=== PATIENT | male | born 1950 | race Caucasian/White ===

== ENCOUNTER 2016-07-13 14:10 | Day surgery (SDC) | payer MEDICARE ==
--- NOTE | ~2016-07-13 | OP ---
Record Of Operation [facility] [address] [place]. [address] NAME: RUBEN MAYORGA : 48 STATUS : [facility]#: [id number] AGE: 66 ADM/REG DATE : 07/13/16 MR#: [id number] REPORT SERV DATE: 07/14/16 DICTATED BY: JUDITH BOOTHE DATE: 07/14/16 REPORT STATUS : Draft TRANSCRIBED BY: MODL DATE: 07/14/16 DATE OF PROCEDURE: 07/13/2016 GEM CARVER: Ubaldo. PREPROCEDURE DIAGNOSIS: Angiomyolipoma metastatic cancer. POSTPROCEDURE DIAGNOSIS: Angiomyolipoma metastatic cancer. PROCEDURE PERFORMED: Placement of Port-A-Cath in the right IJ position using fluoroscopic and ultrasound guidance. ANESTHETIC: MAC and local. SPECIMENS: None. ESTIMATED BLOOD LOSS: Minimal. COMPLICATIONS: None. 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 He is needing to get chemotherapy and was offered a port for this. Risks, benefits, and alternatives were discussed. He understood and wished to proceed. OPERATIVE COURSE: The patient was brought to the operating room and placed in supine position on the operating room table. The patient had MAC anesthetic without complications. The right neck and chest were prepped and draped in sterile fashion. A time-out was performed to identify the correct patient, procedure, and site. We began by using the ultrasound to identify the right IJ vein. It was compressible and free of thrombus. We anesthetized the skin and subcutaneous tissue, and then accessed the vein under ultrasound guidance. A copy of this picture was placed on the chart for review. Once we had access, a wire was passed down through the cardiac chambers into the IVC. The needle was removed and we widened the entry site using #11 blade scalpel. We selected a site for the port and anesthetized the skin and subcutaneous tissue here as well as from that location to the neck site. We made a transverse incision 1 to 2 fingerbreadths below the clavicle and deepened it using the cautery. We made an adequate pocket and tested it by placing the port inside it and it fit adequately. We then tunneled the catheter portion of the port from the pocket into subcutaneous tissue over the clavicle and into the neck exit site. Over the wire, we then passed a series of dilators to dilate the skin and vein tract. We then placed the angulo breakaway sheath over the wire into position under fluoroscopy. The dilator and wire were then removed. We then advanced the catheter into position through the sheath. The sheath was split and removed while keeping the catheter in place. The catheter was flushed and it worked appropriately. We then trimmed the catheter. We got the port and sutured it medially and laterally with Prolene suture to the deep pocket space. We attached the port to the catheter using the appropriate locking mechanism. Prior to dunking the port under Record Of Operation [facility] [address] [facility] [place]. [address] NAME: RUBEN MAYORGA : 48 STATUS : [facility]#: [id number] AGE: 66 ADM/REG DATE : 07/13/16 MR#: [id number] REPORT SERV DATE: 07/14/16 DICTATED BY: JUDITH BOOTHE DATE: 07/14/16 REPORT STATUS : Draft TRANSCRIBED BY: TRANG DATE: 07/14/16 the skin, we tested using the straight Carroll needle and it worked appropriately. We put the port under the skin, secured with Prolenes, and tested it once again with the straight Carroll needle through the skin and it worked fine. The wound was irrigated. We closed the transverse subcostal wound with subdermal interrupted Vicryl and 4-0 subcuticular Monocryl and Dermabond. The neck site was closed with interrupted Monocryl suture and Dermabond. The patient tolerated the procedure well. He was awakened and transferred to recovery in stable condition. VIVIANA/TRANG Judith Boothe MD / [id number] CC: MD ROSANNE Hopper TRACY G
[~2016-07-13 14:10] MED LIST: AFINITOR10 MG PO; ANAF PO; ASAB PO; COZAAR100 MG PO; DCN100 PO; KLONO1 PO; LIPITOR40 PO; LOTE40 PO; PAXIL30 MG PO; VITAMIN PO
[2016-07-13 15:18] LABS: BASOPHILS 0.4 %; BASOPHILS ABSOLUTE 0.02 10/3/uL (0.0-0.16); EOSINOPHILS 3.4 %; EOSINOPHILS ABSOLUTE 0.16 10/3/uL (0.0-0.53); HEMATOCRIT 40.7 % (40.0-51.0); HEMOGLOBIN 13.2 g/dL (13.6-17.8); IMMATURE GRANULOCYTES 0.2 %; IMMATURE GRANULOCYTES ABSOLUTE 0.01 10/3/uL (0.0-0.11); LYMPHOCYTES 20.7 %; LYMPHOCYTES ABSOLUTE 0.97 10/3/uL (0.67-4.30); MEAN CORPUS HGB CONC 32.4 g/dL (32.0-36.0); MEAN CORPUSCULAR HEMOGLOB 26.4 pg (26.0-34.0); MEAN CORPUSCULAR VOLUME 81.4 fL (80-100); MEAN PLATELET VOLUME 8.6 fL (9.2-13.0); MONOCYTES 8.5 %; NEUTROPHILS 66.8 %; NEUTROPHILS ABSOLUTE 3.13 10/3/uL (2.02-8.40); RBC DISTRIBUTION WIDTH 15.7 % (12.0-16.0); WHITE BLOOD CELLS 4.7 10/3/uL (4.5-10.5)
[2016-07-13 15:19] LABS: MANUAL DIFF NO %; PLATELET COUNT 234 10/3/uL (150-400)
[2016-07-13 15:33] LABS: CALCIUM, SERUM 9.1 MG/DL (8.5-10.4); CHLORIDE, SERUM 106 MMOL/L (96-112); CO2 (CARBON DIOXIDE) 29 MMOL/L (24-34); CREATININE 1.65 MG/DL (0.70-1.30); GFR AFRICAN AMERICAN 49 ML/MIN (>=60); GFR NON AFRICAN AMERICAN 42 ML/MIN (>=60); GLUCOSE, SERUM 88 MG/DL (60-99); POTASSIUM, SERUM 4.1 MMOL/L (3.5-5.3); SODIUM, SERUM 143 MMOL/L (135-148)
[2016-07-13 15:35] LABS: BUN (BLOOD UREA NITROGEN) 21 MG/DL (6-23)
[2017-01-04] MEDS ORDERED: KLONO1 PO (08:46)
[2017-01-04] MEDS ORDERED: REM15 PO (08:46)
[2017-01-04] MEDS ORDERED: ZEBETA5 PO (08:48)
[2017-01-15] MEDS ORDERED: PCET PO (09:39)
== END 2016-07-13 19:46 | disposition home or self-care (01) ==
LOC: SDC 14:10
PROVIDERS: Student in an Organized Health Care Education/Training Program
PROC: 05H533Z Insertion of Infusion Device into Right Subclavian Vein, Percutaneous Approach (ICD-10-PCS; principal; 2016-07-13 15:30)
DX: D17.71 Benign lipomatous neoplasm of kidney (principal); E78.00 Pure hypercholesterolemia, unspecified; Z87.442 Personal history of urinary calculi; Z90.5 Acquired absence of kidney; F41.9 Anxiety disorder, unspecified; F32.9 Major depressive disorder, single episode, unspecified; C78.00 Secondary malignant neoplasm of unspecified lung; Z96.1 Presence of intraocular lens; Z98.41 Cataract extraction status, right eye; Z98.42 Cataract extraction status, left eye; Z91.041 Radiographic dye allergy status; Z98.890 Other specified postprocedural states
CPT/HCPCS: 36561; 76937; 77001; 80048; 85025; 93005; C1751; J0690; J2250; J3010